=== PATIENT | male | born 1935 | race Caucasian/White ===

== ENCOUNTER 2016-12-14 09:24 | Observation (INO) | payer MEDICARE, BC ==
[~2016-12-14] VITALS: Ht 177.8 cm; Wt 61.8 kg
[~2016-12-14 09:24] MED LIST: ASPI-557 PO; ATOR40TA64 PO; CLOP75TA33 PO; METO50TA5 PO; RIVA20TA PO
--- NOTE | 2016-12-14 09:35 | NUR ---
PHYSICIAN VISIT DR. DIAZ IN TO SEE PATIENT.
--- NOTE | 2016-12-14 09:40 | NUR ---
EKG EKG TAKEN AND GIVEN TO DR DIAZ
--- NOTE | 2016-12-14 09:40 | NUR ---
CT TRANSPORTED TO CT VIA STRETCHER PER THIS NURSE.
--- NOTE | 2016-12-14 09:48 | NUR ---
RETURN RETURNED FROM CT SCAN.
--- NOTE | 2016-12-14 09:57 | DI ---
Indication: ITS.REASON: R sided tingling PROCEDURE: CT HEAD W/O CONTRAST: Encounter: Initial Comparison: November 25, 2008 Technique: Axial CT images through the head were performed without contrast. Iterative Reconstruction dose reducing technique was utilized. FINDINGS: Mild generalized atrophy. The ventricles are proportional to atrophy. Chronic infarct in the right subinsular frontal lobe. Additional old lacunar infarcts in the left thalamic region. Chronic right cerebellar infarct. There are scattered areas of low attenuation in the white matter which most likely represent changes from chronic microvascular ischemia. The brainstem, cerebellum, and cerebral hemispheres otherwise have a normal morphology and CT attenuation. There is no evidence of midline displacement. No hemorrhage, signs of acute territorial stroke, mass effect, mass lesions, or edema is evident. The visualized portions of the skull base, midface, and calvarium demonstrate no abnormality. The paranasal sinuses are well aerated and free of significant disease. The tympanic and mastoid cavities appear normal. IMPRESSION: No acute intracranial hemorrhage or extended infarct signs. .
[2016-12-14 09:59] LABS: BASOPHILS % (AUTO) 0.3 % (0-2); EOSINOPHILS % (AUTO) 0.5 % (0-4); HCT - HEMATOCRIT 47.2 % (41-53); HGB - HEMOGLOBIN 15.9 GM/DL (13.5-17.5); IMMATURE GRANULOCYTE # (AUTO) 0.01 T/MM3 (0.00-0.03); IMMATURE GRANULOCYTE % (AUTO) 0.2 % (0.0-0.5); LYMPHOCYTES # (AUTO) 0.7 T/MM3 (1-4.8); LYMPHOCYTES % (AUTO) 11.9 % (23-45); MEAN CORPUSCULAR HGB 30.1 UUG (26-34); MEAN CORPUSCULAR HGB CONC(MCHC 33.7 GM/DL (31-37); MEAN CORPUSCULAR VOLUME 89.4 UM3 (80-100); MEAN PLATELET VOLUME 10.5 UM3 (9.4-12.4); MONOCYTES # (AUTO) 0.3 T/MM3 (0-0.8); MONOCYTES % (AUTO) 4.3 % (0-9.0); NEUTROPHILS #(AUTO)-ABSOLUTE 4.8 T/MM3 (1.8-7.7); NEUTROPHILS % (AUTO) 82.8 % (33-66); RED BLOOD COUNT 5.28 M/MM3 (4.50-5.90); WBC - WHITE BLOOD COUNT 5.8 T/MM3 (4.5-11.0)
--- NOTE | 2016-12-14 10:06 | ERPDOC ---
Departure Disposition Decision Date: Dec 14, 2016 Disposition Decision Time: 11:00 Disposition: 02 TO [facility] Impression Impression Impression: Primary Impression: Tingling of right upper extremity Severity: Mild Condition: Improved Seen By: Physician only Referrals: NICOLE HARDEN MD (Family) Problems/Meds/Labs Reviewed?: Yes Medications reviewed and manag: Yes Follow up care ordered?: Yes Mental Status: Alert, Oriented HPI - General Medical General Chief Complaint: Neuro Symptoms/Deficits Stated Complaint: POSSIBLE STROKE Time Seen by Provider: 09:34 Source: patient, family, RN/MD Exam Limitations: no limitations HPI - General Medical Initial Comments 81-year-old male presents to the emergency department with a chief complaint of tingling in his right upper extremity. Patient has a history of CVA several years ago and has residual tingling and weakness on the right side. Patient states that he has noticed increased tingling. However the patient cannot state when his symptoms onset. He is unsure. Patient denies any pain or discomfort. Patient was at home when the symptoms began. Symptoms have been persistent in nature since onset. Patient does not have any other complaints or associated symptoms. He does not note any exacerbating or remitting factors. Patient is anticoagulated on Xarelto. Allergies: Coded Allergies: Iodinated Contrast Media - Oral and (Verified Allergy, Severe, RESP. DIFFICULTIES, 12/14/16) Past History Past Medical History Metabolic: cancer, hypercholesterolemia, hypertension ENMT: other Cardiac: A-fib Neurological: CVA Psychological: dementia Surgical History General: tonsils Vaccines Hx Influenza Vaccination: Yes (FALL 2014) Hx Pneumococcal Vaccination: No Social History Smoking Status: Former smoker Does patient use chewing tobac: No # of Packs/Tins per Day: 0.1 # of Years: 45 Substance Use Type: does not use Alcohol Intake: none Current Occupational Status: retired Review of Systems Constitutional Constitutional: DENIES: chills, fever Eyes General: DENIES: erythema, exudate Lids/Accessories: DENIES: erythema, swelling Vision: DENIES: acuity, blurring ENMT Ears: DENIES: drainage, pain Hearing: DENIES: hearing loss Balance: DENIES: ataxia, falling to one side Sinuses: DENIES: congestion, pain Nose: DENIES: nosebleeds, pain Mouth/Throat: DENIES: painful swallowing, sore throat Teeth: DENIES: pain Jaw: DENIES: pain Cardiovascular Cardiac: DENIES: chest pain, dyspnea on exertion Rhythm/Rate: irregular beat (hx AFIB), DENIES: palpitations Vascular: DENIES: pedal edema, unilateral swelling Pulmonary Respiratory: DENIES: cough, dyspnea, pleuritic chest pain, sputum GI Upper Abdomen: DENIES: nausea, pain, vomiting Lower Abdomen: DENIES: diarrhea, pain General: DENIES: dysuria, pain Musculoskeletal General: DENIES: joint pain, tenderness Integumentary Skin: DENIES: itching, rash Neurological General: tingling, DENIES: headache, numbness Psychiatric Psychiatric: DENIES: emotional instability, suicidal ideation/attempt Endocrine Endocrine: DENIES: polydipsia, polyphagia Hematologic/Lymphatic Hematologic/Lymphatic: DENIES: frequent nosebleeds, lymphadenopathy Allergic/Immunological Allergic/Immunoligical: DENIES: allergic reactions, hives Physical Exam General Vitals and Pain First Documented Vital Signs Date Time Temp Pulse Resp B/P Pulse Ox O2 Delivery O2 Flow Rate FiO2 12/14/16 09:25 98.1 93 16 189/101 97 Room Air Weight: Kilograms: Height (feet): 5 Height (inches): 7.00 Triage Pain Scale: Differential Diagnoses Considering: CVA, Medication Effect, Metabolic, TIA, UTI Progress Results/Orders Orders Procedure Category Date Status Time Cbc W/Auto LAB 12/14/16 Complete Diff-Reflex Manual Cmp - Comprehensive LAB 12/14/16 Complete Metabolic Troponin I W LAB 12/14/16 Complete Hemolysis Index EKG EKG 12/14/16 Taken Chest 1 View RAD 12/14/16 Resulted 09:40 INR LAB 12/14/16 Complete PTT LAB 12/14/[address] Head W/O Contrast CT 12/14/16 Resulted 09:40 Aspirin (Asa) PHA 12/15/16 In Process 09:00 UA, LAB 12/14/16 Complete Dip&Micro(Complete) & 11:10 Lab Results Laboratory Tests Test 12/14/16 09:54 12/14/16 09:55 12/14/16 09:56 Glucometer 93mg/dL White Blood Count 5.8T/MM3 Red Blood Count 5.28M/MM3 Hemoglobin 15.9GM/DL Hematocrit 47.2% Mean Corpuscular Volume 89.4UM3 Mean Corpuscular Hemoglobin 30.1UUG Mean Corpuscular Hemoglobin Concent 33.7GM/DL RDW Standard Deviation 45.4FL Platelet Count 192T/MM3 Mean Platelet Volume 10.5UM3 Immature Granulocyte % (Auto) 0.2% Neutrophils (%) (Auto) 82.8% Lymphocytes (%) (Auto) 11.9% Monocytes (%) (Auto) 4.3% Eosinophils (%) (Auto) 0.5% Basophils (%) (Auto) 0.3% Absolute Immature Granulocyte (auto 0.01T/MM3 Absolute Neutrophils (auto) 4.8T/MM3 Absolute Lymphocytes (auto) 0.7T/MM3 Absolute Monocytes (auto) 0.3T/MM3 Absolute Eosinophils (auto) 0.0T/MM3 Absolute Basophils (auto) 0.0T/MM3 Prothromb Time International Ratio 1.30 Activated Partial Thromboplast Time 37.3SEC Turbidity < 20 Sodium Level 144MEQ/L Potassium Level 4.7MEQ/L Chloride Level 108MEQ/L Carbon Dioxide Level 29MEQ/L Anion Gap 7MEQ/L Blood Urea Nitrogen 16.0MG/DL Creatinine 0.8MG/DL Glomerular Filtration Rate Calc 93 BUN/Creatinine Ratio 20RATIO Glucose Level 98MG/DL Calculated Osmolality 278MOSM/KG Calcium Level 9.2MG/DL Total Bilirubin 1.80MG/DL Icterus Index < 2 Aspartate Amino Transf (AST/SGOT) 28U/L Alanine Aminotransferase (ALT/SGPT) 26U/L Alkaline Phosphatase 78U/L Troponin I < 0.012ng/ml Total Protein 7.4G/DL Albumin 4.2G/DL Globulin 3.2G/DL Albumin/Globulin Ratio 1.3RATIO Chemistry Specimen Hemolysis < 15 Medications Progress Progress Labs/imaging were discussed in detail with the patient and questions are answered. Patient is given 81 mg of aspirin by mouth 1 as he is currently on Xarelto. Patient was given this amount of aspirin based on the recommendation of the tele-neurologist Dr. Mallory. Patient and family are in agreement with the current plan of management. Patient is admitted to the hospital in improved condition. No further orders from accepting or consulting physicians. Patient is admitted to the service of Dr. Franco in improved condition. Patient is not a TPA candidate as we do not have an exact time of onset of his symptoms. We do not know when he was last known normal. The patient has a low NIH score. Patient is admitted to the hospital in improved condition. Patient is a DO NOT RESUSCITATE. EKG EKG : Rate: 60-100 Rhythm: atrial fibrillation [place]: normal QRS: normal Intervals: normal ST/T: normal Interpreted by: signing physician Xray Xray : Xray: CXR Portable Interpretation: Normal, Interpreted by Me, Reviewed Written Report CT Date CT Interpreted for [place]: Dec 14, [address] Interpreted for Stroke: 09:54 CT : CT: Head no contrast Interpretation: Normal, Interpreted by Me, Reviewed Written Report EDWARD DIAZ DO Dec 14, 2016 10:[address] Interpreted for Stroke: 09:54 CT : CT: Head no contrast Interpretation: Normal, Interpreted by Me, Reviewed Written Report EDWARD DIAZ DO Dec 14, 2016 10:06
[2016-12-14 10:08] LABS: ALBUMIN 4.2 G/DL (3.5-5.0); ALBUMIN/GLOBULIN RATIO 1.3 RATIO (1.1-2.2); ALKALINE PHOSPHATASE 78 U/L (38-126); ALT (SGPT) 26 U/L (21-72); ANION GAP 7 MEQ/L (5-15); AST (SGOT) 28 U/L (17-59); BUN/CREATININE RATIO 20 RATIO (6-26); CALCIUM 9.2 MG/DL (8.4-10.2); CHLORIDE 108 MEQ/L (98-107); CO2 - CARBON DIOXIDE 29 MEQ/L (22-30); CREATININE 0.8 MG/DL (0.8-1.5); GLOMERULAR FILTRATION RATE 93; GLUCOSE 98 MG/DL (75-110); POTASSIUM 4.7 MEQ/L (3.6-5); SODIUM 144 MEQ/L (134-144); TOTAL PROTEIN 7.4 G/DL (6.3-8.2)
[2016-12-14 10:09] LABS: INR 1.3 (0.76-1.04); PROTHROMBIN TIME 14.2 SEC (9.31-12.49); PTT 37.3 SEC (24-36)
--- NOTE | 2016-12-14 10:10 | NUR ---
TELE-NEUROLOGIST TELE-NEUROLOGIST BEAMED IN AT BEDSIDE.
--- NOTE | 2016-12-14 10:22 | NUR ---
X-RAY X-RAY AT BEDSIDE TO PERFORM PORTABLE.
--- NOTE | 2016-12-14 10:43 | DI ---
Indication: ITS.REASON: R sided tingling PROCEDURE: CHEST 1 VIEW: Encounter: Initial Comparison: March 18, 2013 Findings: Emphysema. No focal pneumonia, pleural effusion or pneumothorax. Heart size is at the upper limits of normal. Mediastinal contours are stable. Pulmonary vascularity is normal. Impression: No acute cardiopulmonary disease. .
[2016-12-14 11:15] LABS: BLOOD, URINE 1+ (NEGATIVE); COLOR,URINE YELLOW (YELLOW); LEUKOCYTE ESTERASE ,URINE NEGATIVE (NEGATIVE); NITRITE,URINE NEGATIVE (NEGATIVE); UROBILINOGEN,URINE 0.2 EU/DL (NORMAL)
[2016-12-14] MEDS ORDERED: NORMAL SALINE 500 ML IV ONE (11:15)
[2016-12-14 11:31] LABS: BACTERIA,URINE NEGATIVE (NEGATIVE); RBC,URINE 0-1 /HPF (0-3); WBC,URINE NONE SEEN /HPF (0-5)
--- NOTE | 2016-12-14 12:16 | NUR ---
REPORT REPORT CALLED TO GHISLAINE KRUSE, MEDICAL FLOOR.
[2016-12-14 12:36] VITALS: Ht 177.8 cm; Wt 61.8 kg
[2016-12-14 12:38] VITALS: BP 177/92; PULSE 86; RESP 20; TEMP 96.6; O2SAT 96
[2016-12-14 13:01] VITALS: PULSE 86; RESP 20
--- NOTE | 2016-12-14 13:07 | NUR ---
ADMISSION NOTED 81 year old, admitted to medical unit room 151 at 12:30, patient arrived with [facility] ED staff via bed. Patient was able to transfer to the bed by him self with SBA. Family was not present during admission. Patient is AO x 3, speech is clear and appropriate. Patient is clean and dress appropriate for season, Pa states he wears upper dentures but someone probably took them home before he came to the medical unit. Pt also states he wears glasses, no glasses were present at time of admission, patient is able to verbalize needs. LS are CTA, heart rate is irregular, ED nursed reported patient having controlled A-fib. No edema noted. Patient denies pain or SOA. patient denies needs or concerns at the moment.
--- NOTE | 2016-12-14 14:13 | HPF ---
I was asked to see the patient with concern of stroke. The patient is a 81-year -old male with prior history of stroke and vascular dementia as well as hypertension, hypercholesterolemia. The patient originally had a stroke 12 years ago which left him with weakness on his right-hand side. The patient has had subsequent strokes since. The patient now arrives after noting numbness in his right arm that began yesterday. The patient is supposed to be Xarelto but patient's compliance with the medication is not good. The patient does not describe any weakness, vision changes, headache or any other focal neurologic disability. His numbness is confined to his right arm. Patient denies any recent falls. The patient lives alone, with some living assistance. PAST MEDICAL HISTORY Patient's past medical history is as described. MEDICATIONS His medication list includes beta blockers as well as Xarelto. PHYSICAL EXAMINATION On examination today, the patient is alert. He is not oriented to date. He is oriented to himself. He does not know his age. The patient is able to follow commands but the patient is [id number]. His facies are symmetric. His extraocular movements are full. His pupils constrict from 4 to 2. The patient's strength is 5/5 throughout. His fine motor movements are equivalent bilaterally. The patient reports decreased sensation in his right arm compared to the left in a nondermatomal fashion. Facial sensation and leg sensation are equivalent from side to side. Patient demonstrates no ataxia and the patient has no neglect. ASSESSMENT This is a 81-year-old male who may have had a n additional stroke or worsening of a previous stroke related to his medical condition. RECOMMENDATIONS Chemistry, CBC should be reviewed to look for any metabolic cause that would worsen his symptoms. I would not recommend an MRI for this patient. I would recommend a carotid ultrasound based upon the fact that the patient would consider endovascular revascularization if the patient did have blockage that would place him at higher risk for subsequent stroke. His hemoglobin A1c and his lipid profile should be checked. The patient's compliance with medication should be investigated. The patient has an indication with atrial fibrillation and Xarelto and should be continued on that. He is not wanting to take medication, the patient should be placed on aspirin. The patient's living situation and home safety should also be assessed. I have shared my findings with the emergency department physician. FRANDY
--- NOTE | 2016-12-14 14:31 | HPPDOC ---
ROSEMARY RESENDIZ BOILERS INSPECTOR 12/14/16 1416: HPI - Adult Date DATE: 12/14/16 TIME: 14:09 General Chief Complaint: Stroke-like symptoms History of Present Illness Brandon Walsh is a 81-year-old male who was seen in Dr. Mckeon's office this morning for routine follow-up. While he was there, he developed right hand and arm numbness. He was then sent to the emergency department for further evaluation and the teleneurologist was consulted. A CT scan of his head was negative, and labs were essentially unremarkable. Total bili was slightly elevated at 1.80. INR was 1.30. Urinalysis was negative for UTI. He received a 500 cc normal saline bolus and aspirin [address] Franco was notified, and the patient was admitted to observation status for further evaluation. Brandon has a history of a previous stroke, was reported right arm/hand weakness. He also stated that "they are watching me close for a stroke" - he stated that he gets confused sometimes. When I assessed the patient in his room on the medical unit, he denied any symptoms. I asked him specifically about numbness or tingling, and he denied having any of these problems today. I inquired about weakness or difficulty with motor control in his arms or legs, and he said he does have this sometimes, but it's because of old age, and it is made worse by the weather. He denies any visual changes, dysphagia, recent illness, fevers, shortness of breath or chest pain, palpitations, abdominal pain or GI complaints. Past Medical History Past Medical History Patient's Medical History: (1) Stroke (2) Type 2 diabetes mellitus (3) Atrial fibrillation (4) CHF (congestive heart failure) (5) Rheumatic fever Onset Date: ~ 09/1944 (6) Tubular adenoma of colon (7) Atherosclerosis of artery of both lower extremities (8) Essential (primary) hypertension (9) Mixed hyperlipidemia (10) Dementia Surgical History Patient's Surgical History: Left SFA and left popliteal recanalizations with LEAD DATABASE ADMINISTRATOR and stent 03/29/16 Attempted right popliteal and right SFA recanalization 04/28/16 Right thumb, excisional biopsy and removal of a ganglion in 2007 Colonoscopy November, Bilateral cataract repairs, 2003. Facetectomy, 1984 Tonsillectomy, 1946 Current Medications Home Meds Reported Medications Aspirin (Aspir 81) 81 Mg Tablet.dr, 1 TAB PO DAILY, TAB 04/28/16 Rivaroxaban (Xarelto) 20 Mg Tablet, 1 TAB PO DAILY 03/15/16 Metoprolol Tartrate (Metoprolol Tartrate) 50 Mg Tablet, 50 MG PO BIDWM, TAB Take 1 tablet, by mouth, 2 times a day with meals. 03/15/16 Atorvastatin Calcium (Atorvastatin Calcium) 40 Mg Tablet, 1 TAB PO DAILY 03/15/16 Allergies: Coded Allergies: Iodinated Contrast Media - Oral and (Verified Allergy, Severe, RESP. DIFFICULTIES, 12/14/16) Family History Family History: Per previous records - Father - DM and HTN Unable to add any further fam hx Social History Smoking Status: Former smoker (he's not sure when he quit smoking - possibly 20 years ago) Does patient use chewing tobac: No # of Packs/Tins per Day: 0.1 # of Years: 45 Substance Use Type: does not use Alcohol Intake: none Current Occupational Status: retired Prior Occupation: [employer] Advance Directives: Yes DNR, No DPOA for Healthcare Only Review of Systems Unable to Obtain ROS Due to: dementia (pt is a poor historian) Constitutional: DENIES: appetite decrease, chills, dizziness, fatigue, fever, weakness Eyes Vision: DENIES: vision changes ENMT Sinuses: NOT FOUND: congestion, rhinorrhea Mouth/Throat: DENIES: change in swallowing, sore throat Cardiovascular DENIES: chest pain, dyspnea on exertion Vascular: DENIES: pedal edema Pulmonary Respiratory: DENIES: cough, dyspnea GI Upper Abdomen: DENIES: nausea, pain, vomiting Lower Abdomen: DENIES: constipation, diarrhea General: DENIES: dysuria, frequency Musculoskeletal General: DENIES: pain, weakness Integumentary Skin: DENIES: rash Neurological General: memory disturbances, DENIES: ataxia, headache, numbness, syncope, tremor, weakness Psychiatric Psychiatric: DENIES: anxiety, depression Hematologic/Lymphatic DENIES: anemia Allergic/Immunological DENIES: frequent infections All Other Systems All Other Systems: Reviewed (remainder of 10-point ROS Neg.) Physical Exam General General Nourishment: well nourished, well developed, thin General Body Habitus: well groomed Vital Signs Vital Signs Date Time Temp Pulse Resp B/P Pulse Ox O2 Delivery O2 Flow Rate FiO2 12/14/16 13:01 86 20 12/14/16 12:38 96.6 177/92 96 Room Air Height (Feet): 5 Height (Inches): 10.00 Eyes Brief: FOUND: EOMI, PERRL, NOT FOUND: scleral icterus ENMT Brief: FOUND: mucosa moist, NOT FOUND: pharnyx erythema Neck Brief: NOT FOUND: adenopathy, nuchal rigidity Respiratory Auscultation: FOUND: normal, NOT FOUND: rales, rhonchi, wheezes Cardiovascular Auscultation: FOUND: S1, S2, regular Peripheral Pulses: 2+: Dorasalis Pedis (L), Dorsalis Pedis (R), Posterior Tibial (L), Posterior Tibial (R), Radial (L), Radial (R) Edema: 0: Anasarca, Arm (L), Arm (R), Face, Leg (L), Leg (R) Abdomen Inspection: NOT FOUND: distention Palpation: FOUND: soft, NOT FOUND: McBurney's point tender, Warner's sign, involuntary guarding, rebound, tender, voluntary guarding Auscultation: FOUND: normo active Lymphatic (brief) Lymphatic Brief: NOT FOUND: adenopathy Musculoskeletal (brief) Musculoskeletal Brief: NOT FOUND: deformity, loss of motion Integumentary (brief) Integumentary Brief: FOUND: dry, pink, warm Integumentary General: FOUND: dry, warm Color: FOUND: pink Neurologic (brief) Neurological Brief: FOUND: cranial 2-12 intact, motor (equal b/l) Neurologic GCS Eye Opening: (4)Spontaneous GCS Verbal: (5)Oriented GCS Motor: (6)Obeys Commands RN Documented GCS Eye Opening: (4)Spontaneous Verbal: (5)Oriented Motor: (6)Obeys Commands Total: Psychiatric (brief) FOUND: alert, attentive, normal affect, oriented Laboratory Laboratory Tests Test 12/14/16 09:54 12/14/16 09:55 12/14/16 09:56 12/14/16 11:10 Glucometer 93mg/dL White Blood Count 5.8T/MM3 Red Blood Count 5.28M/MM3 Hemoglobin 15.9GM/DL Hematocrit 47.2% Mean Corpuscular Volume 89.4UM3 Mean Corpuscular Hemoglobin 30.1UUG Mean Corpuscular Hemoglobin Concent 33.7GM/DL RDW Standard Deviation 45.4FL Platelet Count 192T/MM3 Mean Platelet Volume 10.5UM3 Immature Granulocyte % (Auto) 0.2% Neutrophils (%) (Auto) 82.8% Lymphocytes (%) (Auto) 11.9% Monocytes (%) (Auto) 4.3% Eosinophils (%) (Auto) 0.5% Basophils (%) (Auto) 0.3% Absolute Immature Granulocyte (auto 0.01T/MM3 Absolute Neutrophils (auto) 4.8T/MM3 Absolute Lymphocytes (auto) 0.7T/MM3 Absolute Monocytes (auto) 0.3T/MM3 Absolute Eosinophils (auto) 0.0T/MM3 Absolute Basophils (auto) 0.0T/MM3 Prothromb Time International Ratio 1.30 Activated Partial Thromboplast Time 37.3SEC Turbidity < 20 Sodium Level 144MEQ/L Potassium Level 4.7MEQ/L Chloride Level 108MEQ/L Carbon Dioxide Level 29MEQ/L Anion Gap 7MEQ/L Blood Urea Nitrogen 16.0MG/DL Creatinine 0.8MG/DL Glomerular Filtration Rate Calc 93 BUN/Creatinine Ratio 20RATIO Glucose Level 98MG/DL Calculated Osmolality 278MOSM/KG Calcium Level 9.2MG/DL Total Bilirubin 1.80MG/DL Icterus Index < 2 Aspartate Amino Transf (AST/SGOT) 28U/L Alanine Aminotransferase (ALT/SGPT) 26U/L Alkaline Phosphatase 78U/L Troponin I < 0.012ng/ml Total Protein 7.4G/DL Albumin 4.2G/DL Globulin 3.2G/DL Albumin/Globulin Ratio 1.3RATIO Chemistry Specimen Hemolysis < 15 Urine Collection Type Cleancatch-midstream Urine Color Yellow Urine Turbidity Clear Urine pH 5.5 Urine Specific Slaughter 1.020 Urine Protein Negative Urine Glucose (UA) Negative Urine Ketones Negative Urine Blood 1+ Urine Nitrite Negative Urine Bilirubin Negative Urine Urobilinogen 0.2EU/DL Urine Leukocyte Esterase Negative Urine RBC 0-1/HPF Urine WBC None seen/HPF Urine Bacteria Negative Urine Culture Indicated Cult not indicated Assessment & Plan Problems: (1) Tingling of right upper extremity Status: Acute Assessment & Plan: R/O stroke (2) Mixed hyperlipidemia Status: Chronic (3) Essential (primary) hypertension Status: Chronic (4) Atherosclerosis of artery of both lower extremities Status: Chronic (5) Atrial fibrillation Status: Chronic (6) CHF (congestive heart failure) Status: Chronic (7) Rheumatic fever Onset Date: ~ 09/1944 Status: Chronic (8) Type 2 diabetes mellitus Status: Chronic (9) Tubular adenoma of colon Status: Chronic (10) Stroke (11) Dementia Plan/Intensity of Service Admit to observation status under Dr. Franco.. Dx: Right-sided paresthesias, concerning for stroke versus TIA Initial CT head showed mild atrophy without any acute findings. Will obtain carotid Dopplers, echocardiogram, lipid panel. Continue aspirin, Lipitor. Neuro exams every 4 hours while awake Consult PT, OT and speech therapy History of A. fib: Continue beta harvinder and Xarelto. Will discuss further orders with Dr. Franco. DVT Prophylaxis: Xarelto Code Status Do Not Resuscitate Hospital Course Summary Disclaimer The hospital course summary below is not to be considered part of the above Progress Note. Hospital Course Summary 12/14/16 - Admit to observation status under Dr. Franco. Dx: Right-sided paresthesias, concerning for stroke versus TIA Initial CT head showed mild atrophy without any acute findings. Will obtain carotid Dopplers, echocardiogram, lipid panel. Continue aspirin, Lipitor. Neuro exams every 4 hours while awake Consult PT, OT and speech therapy History of A. fib: Continue beta harvinder and Xarelto. MICHEAL FRANCO MD 12/14/162118: Past Medical History Current Medications Home Meds Reported Medications Aspirin (Aspir 81) 81 Mg Tablet.dr, 1 TAB PO DAILY, TAB 04/28/16 Rivaroxaban (Xarelto) 20 Mg Tablet, 1 TAB PO DAILY 03/15/16 Metoprolol Tartrate (Metoprolol Tartrate) 50 Mg Tablet, 50 MG PO BIDWM, TAB Take 1 tablet, by mouth, 2 times a day with meals. 03/15/16 Atorvastatin Calcium (Atorvastatin Calcium) 40 Mg Tablet, 1 TAB PO DAILY 03/15/16 Allergies: Coded Allergies: Iodinated Contrast Media - Oral and (Verified Allergy, Severe, RESP. DIFFICULTIES, 12/14/16) Assessment & Plan Assessment 12/14/2016-I reviewed this chart, the patient history, and the BOILERS INSPECTOR's/PA's documented findings as above. We discussed and formulated the assessment and plan as above with the additions below.-Dr. Franco Currently the patient states he's feeling fine. He denies any numbness or tingling anywhere. He denies any weakness. He denies any pain anywhere. He is breathing well. He does have significant dementia. He is currently pleasant. He was moved to a room close to the nurses station because he was frequently trying to get out of bed. On exam he is alert and in no acute distress. He is pleasantly demented. HEENT reveals no facial asymmetry. Sclera are anicteric. Pupils are equal. Oropharynx is moist. Neck is supple. Carotids are silent. Chest is clear to auscultation. Cardiovascular reveals a regular rate and rhythm. Abdomen is soft and nontender. Extremity is reveal no edema. Neurologic exam reveals confusion. Cranial nerves II through XII are grossly intact. Motor strength is equal in upper and lower extremities. Finger to nose testing is normal. PT and OT both evaluated the patient and recommend 24-hour supervision and I would concur based on his gait instability and confusion. He would likely benefit from making sure his medications are taken appropriately. 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 No intracardiac thrombus or mass. Neuro checks have been normal. Continue on aspirin and Xarelto. Lipid panel is pending. Monitor Accu-Cheks. Consult case management for help with discharge planning. Patient will need 24- hour care. Consider further workup regarding vertebral artery occlusion. ROSEMARY RESENDIZ APRN Dec 14, 2016 14:16 MICHEAL FRANCO MD Dec 14, 2016 21:19
--- NOTE | 2016-12-14 15:47 | DI ---
Indication: ITS.REASON: poss stroke, hx CAD and PVD PROCEDURE: US CAROTID DOPP COMPLETE: TECHNIQUE: Grayscale, color and duplex Doppler imaging was performed of the carotid systems bilaterally. Velocities in cm/sec - validated velocity measurements with angiographic measurements, velocity criteria are extrapolated from diameter data as defined by the Society of Radiologists in Ultrasound Consensus Conference Radiology 2003; 229;340-346. RIGHT: PSV ICA 56 EDV ICA 18 PSV CCA 66 EDV CCA 14 SVR 0.8 PSV ECA 61 ICA Diameter reduction 10%-30% (1.0-1.2 PSV<110)% LEFT: PSV ICA 46 EDV ICA 19 PSV CCA 61 EDV CCA 14 SVR 0.8 PSV ECA 62 ICA Diameter reduction 10%-30% (1.0-1.2 PSV<110)% The right vertebral artery is occluded with retrograde flow. There is bidirectional flow in the right subclavian artery. The left vertebral artery is patent with cephalic flow. Scattered atherosclerotic plaque in the carotid bulbs and proximal ICAs. No velocity elevation. IMPRESSION: 1. No hemodynamically significant carotid stenosis. 2. 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 .
--- NOTE | 2016-12-14 16:54 | STEVAL ---
Eval Subjective and History Date/Time of Eval DATE: 12/14/16 TIME: 16:33 Medical Diagnosis R.O CVA, R/O DYSPHAGIA Treatment Order: Assessment, Dev./Imp. tx plan Orientations: Alert (CONFUSED), Cooperative Primary Complaint: POSSIBLE STROKE Pain: Yes (ACHES FROM ARTHRITIS) Date of Onset of Primary Com: 12/14/16 Prior History of This Problem: Yes (PREVIOUS CVA'S) Patient's Goals: PT WAS CONFUSED TO TIME AND PLACE. HE WANTED SOMEONE TO BRING HIS UPPER DENTURES AND PAJAMAS TO HIM. Significant Past Medical Hx: PT WAS ADMITTED TO [facility] TO RULE OUT STROKE. PMH: MULTIPLE STROKES, RESIDUAL RIGHT WEAKNESS, VASCULAR DEMENTIA, HTN, HYPERCHOLESTEROLEMIA, IONE, TYPE 2 DM, A-FIB, CHF, RHEMUMATIC FEVER 1944, DNR STATUS. Medical History Form Reviewed: Yes Residence Type: Private home/apartment Lives With: Alone Prior Functional Status: PT REPORTED THAT HE WAS ON REGULAR DIET. Current Functional Status: INCREASED RISK OF ASPIRATION Education Subject: Swallowing Strategies Person(s) Educated: Patient Instruction Understanding Demo: Education unsuccessful Education Comment ENDOSCOPY REGISTERED NURSE educated patient on reasoning for evaluation. Pt was suspicious on evaluation but cooperated. Subjective and History Comment: PT WAS ALERT BUT NOT ORIENTED. HE REPORTED THAT HE DID NOT HAVE HIS UPPER DENTURES. PT NEEDED LOUD CONVERSATIONAL VOICE AND FACE TO FACE CONTACT TO UNDERSTAND DIRECTIONS. Dysphagia Evaluation Evaluation Location: Bed (SITTING ON SIDE OF BED) Evaluation Angle: 90 Tongue Protrusion: No Impairment (WFL) Tongue Retraction: No Impairment (WFL) Tongue Extension Midline: No Impairment (WFL) Labial Approximation: No Impairment (WFL) Larynx Elevation During Swallo: No Impairment (WFL) Saliva Control: No Impairment (WFL) Oral Peripheral Exam Comment: PT WAS UNWILLING TO IMITATE ORAL MOTOR MOVEMENTS. SPONTANEOUS MOVEMENTS WERE WITHIN FUNCTIONAL LIMITS. UPPER DENTURE WAS AT HOME. Lip Seal: Adequate-liquid, Adequate-pudding, Adequate-solid Lingual Manipulation: Adequate-liquid, Adequate-pudding, Adequate-solid Chewing: Inadequate-solid (MODERATELY REDUCED, NO UPPER DENTURE) Oral cavity clear post swallow: Adequate-pudding, Adequate-solid Swallow initiated w/o delay: Adequate-liquid, Adequate-pudding, Adequate-solid Multiple swallows not needed: Adequate-liquid, Adequate-pudding, Adequate-solid Voice clear&dry post swallow: Adequate-liquid, Adequate-pudding, Adequate-solid No cough/throat clear: Adequate-liquid, Adequate-pudding, Adequate-solid Assessment/Plan of Care Speech Therapy Impressions: PT DEMONSTRATED FUNCTIONAL ORAL RANGE OF MOTION. HE DEMONSTRATED IMPULSIVE PATTERN FOR EATING AND DRINKING BUT NO S/S OF ASPIRATION. UPPER DENTURE LEFT AT HOME. PT ATE SUGAR FREE PUDDING AND HARITHA CRACKER WITH NO DIFFICULT. THIN LIQUIDS TOLERATED WELL WITH CUE TO SLOW RATE. Nursing Home Goal: Pt will maintain nutrition and hydration of the least restrictive diet while demonstrating no s/s of aspiration on a meal. Short Term Goal: Pt will consume a soft diet with chopped meat and thin liquids without outward signs of aspiration at bedside in 2/2trials. Pt will demonstrate 3/3 components necessary for a safe swallow as listed from the following small bites, slow rate, alternating solids/liquids. Pt will implement compensatory feeding strategies in 2/2 feeding trials / meals with mild cues to aid recall. ST Treatment Plan: Swallow Retraining, Swallow Precautions, Modified Diet ST Treatment Plan Frequency: two times per week Treatment Plan Duration: one week Plan of Care Comment soft diet/chopped meat and regular liquids small bites/sips, alternate solids and liquids swallow precautions Date of Visit 12/14/16 Time Visit Began: 16:15 Time Visit Ended: 16:35 ST Assess/Plan of Care: ST Treatment Charge: Swallow Eval Minutes of Individual Therapy: 20 INDIO GRUBER MS CCC-ENDOSCOPY REGISTERED NURSE Dec 14, 2016 16:36
--- NOTE | 2016-12-14 19:47 | NUR ---
SHIFT SUMMARY Patient has been pleasant, he is cooperative compliant with medications. Patient is NIKOLSKI, he continues to ask often for his glasses, patient will get up to the bathroom with out calling for help, Pt is a little unsteady, he ambulates with FWW Pt needs help with reading the menu since he doesn't have his glasses with him. Neuro vascular checks are suppose to be done Q 4 hr Last neuro vascular checks patient denies numbness or tingling on any extremities. Extremities strength were WNL. Able to smile and move facial features. speech is clear and appropriate. while awake. Patient denied any pain this shift. patient denies needs or concerns at the moment.
[2016-12-14 20:25] VITALS: PULSE 90; RESP 20
[2016-12-14 23:41] VITALS: PULSE 98; RESP 20
--- NOTE | 2016-12-14 23:55 | NUR ---
Status arrived on shift. Patient is alert and oriented to person/place/month. patient was close on date. patient was cooperative with assessment. Anxious and hollering out. Patient appears anxious as observed by impulsiveness, restless, poor safety awareness, elevated HR. And repeating same questions 10-15x in a 5min period. Patient is able to follow command, Neuro check unremarkable.
[2016-12-15] MEDS: LORAZEPAM 0.5 MG TABLET PO PRN ×2 (00:15→11:35)
[2016-12-15 00:35] VITALS: BP 165/99; PULSE 80; RESP 18; TEMP 97.3; O2SAT 95
[2016-12-15 00:38] LABS: LDL CHOLESTEROL,CALCULATED 152.2 (66-159); RISK FACTOR 4.1 RATIO (0-5.0); VLDL CHOLESTEROL 15.8 MG/DL (0-28)
--- NOTE | 2016-12-15 03:06 | NUR ---
status patient was cooperative with neuro check. Patient orientation decreased to person only. Patient has hx of dementia. patient is alert, and up standby assist. patient is focusing [place] and what time the train is leaving. 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 Patient is up in room with staff at side, patient is looking for his clothes to leave. Patient is able to follow commands, unable to be reoriented to hospital at this time. patient is pleasant with staff at this time. no aggression noted Addendum: 12/15/16 at 0315 by JORGE FORDE RN per bedside report from previous nurse, patient had been hitting, kicking, uncooperative with cares, and aggressive with staff. Previous RN was unable to get pt to be cooperative with Tele. Tele was placed on patient after assuming care at 2300.
--- NOTE | 2016-12-15 06:09 | NUR ---
status patient hasn't slept through the night. patient has been impulsive trying to climb out of bed frequently. slightly unsteady gait, with poor safety awareness. patient denies pain or discomfort. On RA, VSS. A/O to person only, with hx of dementia. Patient is Pleasantly confused at this time. equal strength in limbs, responds to cuing. Staff is at bedside for patient safety.
[2016-12-15 07:46] VITALS: BP 131/92; PULSE 73; RESP 16; TEMP 98.3; O2SAT 96
--- NOTE | 2016-12-15 07:57 | ECHOF ---
ECHOCARDIOGRAM REPORT DATE OF PROCEDURE December 14, [address] Johanny Franco This is a two-dimensional echo with spectral Doppler, color-flow and M-mode. It was obtained in a patient with possible CVA, CHF and A-Fib. Left atrium is dilated. Left ventricle end-diastolic dimension is normal. Left ventricle wall thickness is normal. LV systolic function is normal with ejection fraction of 60%. Right atrium is dilated. Right ventricle is normal. Aortic root dimension is normal. Mitral annulus is calcified. Mitral valve leaflets are normal with moderate mitral regurgitation. Aortic valve shows fibrocalcific changes with no stenosis or insufficiency. Tricuspid valve shows mild tricuspid regurgitation with normal estimated pulmonary artery systolic pressure of 30. Pulmonary valve shows no pulmonary insufficiency. There is no pericardial effusion. Grossly there is no intracardiac thrombus or mass. IMPRESSION 1. Normal LV systolic function with ejection fraction of 60%. 2. Technically difficult study. 3. Grossly no intracardiac thrombus or mass. 4. Mitral annulus calcification with moderate mitral regurgitation. 5. Biatrial dilation. 6. Aortic sclerosis. 7. Mild tricuspid regurgitation with normal estimated pulmonary artery systolic pressure of 30. MTDD
[2016-12-15 08:00] VITALS: PULSE 73; RESP 18
--- NOTE | 2016-12-15 08:30 | NUR ---
Pt Assessment Pt oriented to person only, thinks is in school. Does not know he is in the hospital, does not reorient, and questions why other students are "old people"? Is impulsive and requires 1:1 observation and chair alarm. Pt is pleasant when redirected and will follow requests, but briefly.
[2016-12-15] MEDS ORDERED: ASPIRIN *EC* 81mg TABLET PO SCH (09:00)
[2016-12-15] MEDS ORDERED: ASPIRIN 81 MG CHEWABLE TABLET PO SCH (09:00)
--- NOTE | 2016-12-15 09:09 | STDAILYN ---
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 No complaint of pain or fatigue. Orientations: Alert (confused), Cooperative Chief Complaint: right pneumonia, sepsis, dysphagia R13.11 Was Patient Education Provided: Yes Education Subject: Swallowing Strategies Instruction Understanding Demo: Pt. demos understanding Education Comment Pt followed cueing for feeding strategies. Unlikely that he will retain information. *Speech Therapy Impressions Pt fed himself a soft diet/chopped meat and regular liquids with minimal throat clearing after swallow. Pt used small bites/slow rate with moderate cue needed to alternate solids and liquids. Pt needed mild cueing to use compensatory feeding strategies consistently. ST Treatment Plan: Swallow Retraining, Swallow Precautions, Modified Diet ST Treatment Plan Frequency: three times per week Treatment Plan Duration: one week Plan of Care Comment: Continue POC Start Treatment 1: 08:25 Stop Treatment 1: 08:50 Treatment Duration : ST Treatment Charge: Swallow Treatment Minutes of Individual Therapy: 25 INDIO GRUBER MS CCC-MEDICAL SUPERVISOR Dec 15, 2016 09:08
--- NOTE | 2016-12-15 09:53 | NUR ---
HERI LIRIANO VISITED WITH PT AND FRIEND WHO IS AT BEDSIDE. CM EXPLAINED ROLE AND PROVIDED CONTACT INFORMATION. PT/FRIEND WOULD LIKE PT TO GO TO [facility] POST STAY AT [facility] [place]. CM REACHED OUT TO RAVEN AT [facility]. CM WILL FAX INFORMATION TO FACILITY AND THEY WILL CONTACT CM IF NEEDS ARISE. THEY ARE AWARE THAT PT COULD D/C TODAY.
--- NOTE | 2016-12-15 11:15 | NUR ---
PRN Med Pt given Ativan 0.5 mg po for restlessness, impulsive and difficult to redirect and wanting to get dressed and get keys to car and ready to leave.
--- NOTE | 2016-12-15 12:15 | NUR ---
Post PRN med Pt. sleeping and bed alarm on. No respiratory difficulty noted.
--- NOTE | 2016-12-15 14:22 | NUR ---
HERI LIRIANO SPOKE WITH HAY FROM [facility] AND THEY HAVE ACCEPTED PT. DR CHANDLER IS AWARE AND WILL D/C PT TO FACILITY TODAY. [facility] WILL DERMATOLOGY SPECIALIST PT AT 3:00PM TODAY. PT FRANCO PHELPS IS AWARE OF D/C TIME. MATTIE IS AWARE TO CONTACT HERI IF NEEDS ARISE.
[2016-12-15] MEDS ORDERED: ASPI-557 PO (14:24)
[2016-12-15] MEDS ORDERED: UBID200C32 PO (14:24)
[2016-12-15] MEDS ORDERED: ATOR80TA76 PO (14:24)
[2016-12-15] MEDS ORDERED: METO50TA5 PO (14:24)
[2016-12-15] MEDS ORDERED: RIVA20TA PO (14:24)
--- NOTE | 2016-12-15 14:27 | PDOCECFAO ---
ROSEMARY RESENDIZ TELEVISION REPAIR TEACHER 12/15/16 1426: Admission Orders Admission Orders Admit to: ICF Allergies: Coded Allergies: Iodinated Contrast Media - Oral and (Verified Allergy, Severe, RESP. DIFFICULTIES, 12/14/16) Admitting Diagnosis R/O Cva Admitting Physician Johanny Franco MD Code Status Do Not Resuscitate Anticipated LOS: 30 days or less Rehab Potential: Good Rehab Prognosis: Good Diet: No Salt Added Wound/Incision Care: N/A May use Facility Protocol /SO: Yes May Have Flu Vaccine: Yes Intermediate Certification I certify that SNF services are required to be given on an Inpatient basis because of the patient's need for custodial care on a continuing basis for the condition(s) for which he received inpatient hospital services prior to his transfer to the SNF. SNF inpatient care is necessary for the following reasons Not Applicable Cardiac or Respiratory Arrest In Event of Arrest: Do Not Start CPR Resident is Aware of Diagnosis: No (Dementia) Additional Orders: F/U with Dr. Montaño in [address] Mckeon's office to arrange F/U in 2-4 weeks Monitor for stroke symptoms and for muscle pain/weakness since he is on a higher dose of Simvastatin. JOHANNY FRANCO MD 12/15/16 1616: Admission Orders Admission Orders Allergies: Coded Allergies: Iodinated Contrast Media - Oral and (Verified Allergy, Severe, RESP. DIFFICULTIES, 12/14/16) ROSEMARY RESENDIZ APRN Dec 15, 2016 14:26 JOHANNY FRANCO MD Dec 15, 2016 16:16
--- NOTE | 2016-12-15 14:31 | STDAILYN ---
Discharge Note Date/Time DATE: 12/15/16 TIME: 14:29 Discharge From: Inpatient ST Discharge Destination: [facility] ([facility]) Other Reasons for Discharge: swallow plan in place Barriers to Achieving Outcomes: Patient's Cognitive Level Discharge Summary: Pt tolerated a soft diet wtih chopped meat and regular liquids. He may upgrade to regular diet when he has his upper plate in. Discharge Followup Comments: Upgrade diet to regular when pt has his upper denture in. INDIO GRUBER MS CCC-[facility] Dec 15, 2016 14:31
--- NOTE | 2016-12-15 14:39 | DSPDOC ---
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 Normal LV systolic function with ejection fraction of 60%. 2. Technically difficult study. 3. Grossly no intracardiac thrombus or mass. 4. Mitral annulus calcification with moderate mitral regurgitation. 5. Biatrial dilation. 6. Aortic sclerosis. 7. Mild tricuspid regurgitation with normal estimated pulmonary artery systolic pressure of 30. US CAROTID DOPP COMPLETE The right vertebral artery is occluded with retrograde flow. There is bidirectional flow in the right subclavian artery. The left vertebral artery is patent with cephalic flow. Scattered atherosclerotic plaque in the carotid bulbs and proximal ICAs. No velocity elevation. IMPRESSION: 1. No hemodynamically significant carotid stenosis. 2. 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 Laboratory Laboratory Tests Test 12/14/16 09:54 12/14/16 09:55 12/14/16 09:56 12/14/16 11:10 Glucometer 93mg/dL (75-110) White Blood Count 5.8T/MM3 (4.5-11.0) Red Blood Count 5.28M/MM3 (4.50-5.90) Hemoglobin 15.9GM/DL (13.5-17.5) Hematocrit 47.2% (41-53) Mean Corpuscular Volume 89.4UM3 (80-100) Mean Corpuscular Hemoglobin 30.1UUG (26-34) Mean Corpuscular Hemoglobin Concent 33.7GM/DL (31-37) RDW Standard Deviation 45.4FL (36.9-50.2) Platelet Count 192T/MM3 (130-400) Mean Platelet Volume 10.5UM3 (9.4-12.4) Immature Granulocyte % (Auto) 0.2% (0.0-0.5) Neutrophils (%) (Auto) 82.8% (33-66) Lymphocytes (%) (Auto) 11.9% (23-45) Monocytes (%) (Auto) 4.3% (0-9.0) Eosinophils (%) (Auto) 0.5% (0-4) Basophils (%) (Auto) 0.3% (0-2) Absolute Immature Granulocyte (auto 0.01T/MM3 (0.00-0.03) Absolute Neutrophils (auto) 4.8T/MM3 (1.8-7.7) Absolute Lymphocytes (auto) 0.7T/MM3 (1-4.8) Absolute Monocytes (auto) 0.3T/MM3 (0-0.8) Absolute Eosinophils (auto) 0.0T/MM3 (0-0.5) Absolute Basophils (auto) 0.0T/MM3 (0-0.2) Prothromb Time International Ratio 1.30 (0.76-1.04) Activated Partial Thromboplast Time 37.3SEC (24-36) Turbidity < 20 (0-20) Sodium Level 144MEQ/L (134-144) Potassium Level 4.7MEQ/L (3.6-5) Chloride Level 108MEQ/L (98-107) Carbon Dioxide Level 29MEQ/L (22-30) Anion Gap 7MEQ/L (5-15) Blood Urea Nitrogen 16.0MG/DL (9-20) Creatinine 0.8MG/DL (0.8-1.5) Glomerular Filtration Rate Calc 93 BUN/Creatinine Ratio 20RATIO (6-26) Glucose Level 98MG/DL (75-110) Calculated Osmolality 278MOSM/KG (261-280) Calcium Level 9.2MG/DL (8.4-10.2) Total Bilirubin 1.80MG/DL (0.20-1.30) Icterus Index < 2 (0-7) Aspartate Amino Transf (AST/SGOT) 28U/L (17-59) Alanine Aminotransferase (ALT/SGPT) 26U/L (21-72) Alkaline Phosphatase 78U/L (38-126) Troponin I < 0.012ng/ml (0-0.12) Total Protein 7.4G/DL (6.3-8.2) Albumin 4.2G/DL (3.5-5.0) Globulin 3.2G/DL (2.4-3.6) Albumin/Globulin Ratio 1.3RATIO (1.1-2.2) Triglycerides Level 79MG/DL (40-160) Cholesterol Level 222MG/DL (132-199) LDL Cholesterol, Calculated 152.2 (66-159) VLDL Cholesterol 15.8MG/DL (0-28) HDL Cholesterol Direct 54MG/DL (40-60) Cholesterol/HDL Ratio 4.1RATIO (0-5.0) Chemistry Specimen Hemolysis < 15 (0-25) Urine Collection Type Cleancatch-midstream Urine Color Yellow (YELLOW) Urine Turbidity Clear (CLEAR) Urine pH 5.5 (5.0-8.0) Urine Specific [place] 1.020 (1.015-1.025) Urine Protein Negative (NEGATIVE) Urine Glucose (UA) Negative (NEGATIVE) Urine Ketones Negative (NEGATIVE) Urine Blood 1+ (NEGATIVE) Urine Nitrite Negative (NEGATIVE) Urine Bilirubin Negative (NEGATIVE) Urine Urobilinogen 0.2EU/DL (NORMAL) Urine Leukocyte Esterase Negative (NEGATIVE) Urine RBC 0-1/HPF (0-3) Urine WBC None seen/HPF (0-5) Urine Bacteria Negative (NEGATIVE) Urine Culture Indicated Cult not indicated Radiology CHEST 1 VIEW Impression: No acute cardiopulmonary disease. CT HEAD W/O CONTRAST FINDINGS: Mild generalized atrophy. The ventricles are proportional to atrophy. Chronic infarct in the right subinsular frontal lobe. Additional old lacunar infarcts in the left thalamic region. Chronic right cerebellar infarct. There are scattered areas of low attenuation in the white matter which most likely represent changes from chronic microvascular ischemia. The brainstem, cerebellum , and cerebral hemispheres otherwise have a normal morphology and CT attenuation. There is no evidence of midline displacement. No hemorrhage, signs of acute territorial stroke, mass effect, mass lesions, or edema is evident. The visualized portions of the skull base, midface, and calvarium demonstrate no abnormality. The paranasal sinuses are well aerated and free of significant disease. The tympanic and mastoid cavities appear normal. IMPRESSION: No acute intracranial hemorrhage or extended infarct signs. History of Present Illness Brandon Walsh is a 81-year-old male who was seen in Dr. Mckeon's office this morning for routine follow-up. While he was there, he developed right hand and arm numbness. He was then sent to the emergency department for further evaluation and the teleneurologist was consulted. A CT scan of his head was negative, and labs were essentially unremarkable. Total bili was slightly elevated at 1.80. INR was 1.30. Urinalysis was negative for UTI. He received a 500 cc normal saline bolus and aspirin [address] Franco was notified, and the patient was admitted to observation status for further evaluation. Brandon has a history of a previous stroke, was reported right arm/hand weakness. He also stated that "they are watching me close for a stroke" - he stated that he gets confused sometimes. When I assessed the patient in his room on the medical unit, he denied any symptoms. I asked him specifically about numbness or tingling, and he denied having any of these problems today. I inquired about weakness or difficulty with motor control in his arms or legs, and he said he does have this sometimes, but it's because of old age, and it is made worse by the weather. He denies any visual changes, dysphagia, recent illness, fevers, shortness of breath or chest pain, palpitations, abdominal pain or GI complaints. Hospital Course Admitted to observation status under Dr. Franco on 12/13/16 for right-sided paresthesias, concerning for stroke versus TIA. Stroke w/u was ordered - he had rt vertebral artery occlusion, poss subclavian steal syndrome. PT/OT evaluated him - he was impulsive and PT recommended IP PT, but he didn't qualify for IP OT. Lipid panel revealed elevated cholesterol level (222). Serial neuro exams remained negative. Pt required 1:1 care d/t confusion and difficulty following commands, required frequent redirection for safety. For this reason, he was discharged to [facility] rather than back to [place]. Discussed imaging findings with Scarlett Zavala APRN & Dr. Mckeon prior to discharge - increase atorvastatin to 80 mg and start coenzyme q10 (may prevent some muscular discomfort). They would like to f/u in outpatient setting but do not have any immediate recommendations. Continue ASA and Xarelto and BB on discharge. Pt was discharged in stable condition. Pt understanding was limited d/t dementia. F/U with Dr. Harden in 1 week. (This is a brief summary of Mr. Walsh's hospital stay. For more details, please refer to original documents.) Problems: (1) Vertebral artery occlusion (2) TIA (transient ischemic attack) (3) Tingling of right upper extremity Status: Resolved Assessment & Plan: R/O stroke (4) Mixed hyperlipidemia Status: Chronic (5) Essential (primary) hypertension Status: Chronic (6) Atherosclerosis of artery of both lower extremities Status: Chronic (7) Atrial fibrillation Status: Chronic (8) CHF (congestive heart failure) Status: Chronic (9) Type 2 diabetes mellitus Status: Chronic (10) Stroke (11) Dementia Code Status Do Not Resuscitate Home Meds Active Scripts Ubidecarenone (Coenzyme Q-10) 200 Mg Capsule, 200 MG PO DAILY, #3 CAP 0 Refills Prov:ROSEMARY RESENDIZ ENVIRONMENTAL SERVICES TECH 12/15/16 Atorvastatin Calcium (Atorvastatin Calcium) 80 Mg Tablet, 1 TAB PO HS, #30 TAB Prov:ROSEMARY RESENDIZ ENVIRONMENTAL SERVICES TECH 12/15/16 Aspirin (Aspir 81) 81 Mg Tablet.dr, 1 TAB PO DAILY, #30 TAB Prov:ROSEMARY RESENDIZ ENVIRONMENTAL SERVICES TECH 12/15/16 Rivaroxaban (Xarelto) 20 Mg Tablet, 1 TAB PO DAILY, #30 Prov:ORSEMARY RESENDIZ ENVIRONMENTAL SERVICES TECH 12/15/16 Metoprolol Tartrate (Metoprolol Tartrate) 50 Mg Tablet, 50 MG PO BIDWM, #60 TAB Take 1 tablet, by mouth, 2 times a day with meals. Prov:RSOEMARY RESENDIZ ENVIRONMENTAL SERVICES TECH 12/15/16 Discontinued Reported Medications Atorvastatin Calcium (Atorvastatin Calcium) 40 Mg Tablet, 1 TAB PO DAILY 03/15/16 Face to Face Encounter Pt's comprehension of DC instructions is limited. Discharge Disposition ICF Copies To 1: NICOLE HARDEN MD Copies To 2: ALEXANDER MCKEON MD Documentation Requirements Documenting Diagnosis Confusion Alt. Mental Status/Confusion Check if condition above is: Chronic JOHANNY FRANCO MD 12/15/16 1615: Hospital Course 12/15/2016-I reviewed this chart, the patient history, and the ENVIRONMENTAL SERVICES TECH's/PA's documented findings as above. We discussed and formulated the assessment and plan as above with the additions below.-Dr. Franco The patient continues to have fairly significant memory problems. He denies any pain, tingling or weakness. He is up walking with a walker with the nurses without difficulties. He denies any shortness of breath. He has not had any neurologic changes. It is uncertain if he was actually having numbness and tingling yesterday or not since he is not a reliable historian due to his dementia. He does not appear acutely ill. On exam he is alert and pleasant and in no acute distress. On neurologic exam he has no focal deficits. Chest is clear to auscultation. Cardiovascular reveals a regular rate and rhythm. Abdomen is soft and nontender. Extremities reveal no edema. Skin is warm and dry and without rashes. It is uncertain if he was taking his medications as directed at assisted living. Regarding possible TIA, I'll have him stay on Xarelto and aspirin. Due to his elevated LDL and right vertebral artery occlusion will increase Lipitor to 80 mg a day as recommended by Dr. Mckeon. The patient will follow-up with Dr. Mckeon and Dr. Harden. The patient appears to be [facility]. He does need 24-hour supervision due to his dementia. I will notify Dr. Harden of discharge plans. Problems: Home Meds Active Scripts Ubidecarenone (Coenzyme Q-10) 200 Mg Capsule, 200 MG PO DAILY, #3 CAP 0 Refills Prov:ROSEMARY RESENDIZ ENVIRONMENTAL SERVICES TECH 12/15/16 Atorvastatin Calcium (Atorvastatin Calcium) 80 Mg Tablet, 1 TAB PO HS, #30 TAB Prov:ROSEMARY RESENDIZ ENVIRONMENTAL SERVICES TECH 12/15/16 Aspirin (Aspir 81) 81 Mg Tablet.dr, 1 TAB PO DAILY, #30 TAB Prov:ROSEMARY RESENDIZ ENVIRONMENTAL SERVICES TECH 12/15/16 Rivaroxaban (Xarelto) 20 Mg Tablet, 1 TAB PO DAILY, #30 Prov:ROSEMARY RESENDIZ APRN 12/15/16 Metoprolol Tartrate (Metoprolol Tartrate) 50 Mg Tablet, 50 MG PO BIDWM, #60 TAB Take 1 tablet, by mouth, 2 times a day with meals. Prov:ROSEMARY RESENDIZ ENVIRONMENTAL SERVICES TECH 12/15/16 Discontinued Reported Medications Atorvastatin Calcium (Atorvastatin Calcium) 40 Mg Tablet, 1 TAB PO DAILY 03/15/16 Copies To 1: NICOLE HARDEN MD Copies To 2: ALEXANDER MCKEON MD, KAREN D APRN Dec 15, 2016 14:32 JOHANNY FRANCO MD Dec 15, 2016 16:15
--- NOTE | 2016-12-15 14:54 | NUR ---
CM D/C TIME OUT COMPLETE. ALL ORDERS SENT TO POST ACUTE CARE SETTING. CAROLINE FROM [facility] IS AWARE TO CONTACT IF NEEDS ARISE.
--- NOTE | 2016-12-15 15:40 | NUR ---
Discharge Pt dismissed per w/c with transporter for [facility]. Pt.s personal belongings sent with pt.and transfer papers and orders sent..
[2016-12-15] MEDS ORDERED: RIVAROXABAN 20 MG TABLET PO SCH (17:30)
[2016-12-15] MEDS ORDERED: ATORVASTATIN 40 MG TABLET PO SCH (22:00)
--- NOTE | 2016-12-20 09:53 | STEVAL ---
Eval Subjective and History Date/Time of Eval DATE: 11/2916 TIME: 16:36 Medical Diagnosis R/O CVA, R/O DYSPHAGIA Treatment Order: Assessment, Dev./Imp. tx plan Orientations: Alert (Confused), Cooperative Primary Complaint: Change of mental status Pain: Yes (aching from arthritis) Date of Onset of Primary Com: 12/14/16 Prior History of This Problem: Yes (previous CVAs) Patient's Goals: Pt was confused to time and place. He wantd someone to bring his upper dentures and pajamas to him. Significant Past Medical Hx: Pt was admitted to [facility] to rule out stroke. PMH: multiple strokes, residual right weakness. vacular dementia, HTN, hypercholesterolemia, TULALIP, type 2 DM, A-fib, CHF, rheumatic fever 1944, DNR status. Medical History Form Reviewed: Yes Residence Type: Private home/apartment Lives With: Alone Prior Functional Status: Pt reported that he was on a regular diet. Current Functional Status: Increased risk of aspiration. Education Subject: Swallowing Strategies Person(s) Educated: Patient Instruction Understanding Demo: Education unsuccessful (pt confused) Education Comment VOICE AND DATA TECHNICIAN educated patient on reasoning for evaluation. Patient was agreeable to evaluation. Subjective and History Comment: Pt was alert but disoriented. He reported that he did not have his upper dentures with him. Pt needed loud conversational voice and face to face to understand directions. Dysphagia Evaluation Evaluation Location: Bed (sitting on side of bed) Evaluation Angle: 90 Tongue Elevation: No Impairment (WFL) Tongue Lateralization: No Impairment (WFL) Tongue Protrusion: No Impairment (WFL) Tongue Retraction: No Impairment (WFL) Tongue Extension Midline: No Impairment (WFL) Labial Approximation: No Impairment (WFL) Intraoral Air Pressure: Unable to Elicit Volitional Cough: Unable to Elicit Larynx Elevation During Swallo: No Impairment (WFL) Saliva Control: No Impairment (WFL) Dentition: Dentures Oral Peripheral Exam Comment: Pt was unwilling to imitate oral motor movements. Spontaneous movements were within functional limits. Upper denture was at home. Lip Seal: Adequate-liquid, Adequate-pudding, Adequate-solid Lingual Manipulation: Adequate-liquid, Adequate-pudding, Adequate-solid Chewing: Adequate-solid (moderately reduced, no upper denture) Oral cavity clear post swallow: Adequate-liquid, Adequate-pudding, Adequate- solid Swallow initiated w/o delay: Adequate-liquid, Adequate-pudding, Adequate-solid Multiple swallows not needed: Adequate-liquid, Adequate-pudding, Adequate-solid Voice clear&dry post swallow: Adequate-liquid, Adequate-pudding, Adequate-solid No cough/throat clear: Adequate-liquid, Adequate-pudding, Adequate-solid Assessment/Plan of Care Speech Therapy Impressions: Pt demonstrated functional oral range of motion. He demonstrated impulsive pattern for eating and drinking but no s/s of aspiration. Upper denture left at home. Pt ate sugar free pudding and juan carlos cracker with no difficulty. Thin liquids tolerated well with cue to slow rate. Fci Goal: Pt will maintain nutrition and hydration of the least restrictive diet while demonstrating no s/s of aspiration on a meal. Short Term Goal: Pt will consume a soft diet/chopped meat and thin liquids without outward signs of aspiration at bedside in 2/2 trials. Pt will demonstrate [3/3 components necessary for a safe swallow as listed from the following: small bites, slow rate, alternating solids/liquids. Pt will implement compensatory feeding strategies in 2/2 meals with mild cues to aid recall. ST Treatment Plan: Swallow Retraining, Swallow Precautions, Modified Diet ST Treatment Plan Frequency: two times per week Treatment Plan Duration: one week Plan of Care Comment Swallow retraining Soft diet/chopped meat and regular liquids Swallow precautions Date of Visit 12/20/16 Time Visit Began: 16:15 Time Visit Ended: 16:35 ST Assess/Plan of Care: ST Treatment Charge: Swallow Eval Minutes of Individual Therapy: 20 GCODE Swallowing: G8996 - current Severity Modifier: CI - 1-19% Swallowing: G8997 - goal Severity Modifier: CI - 1-19% INDIO GRUBER MS CCC-VOICE AND DATA TECHNICIAN Dec 20, 2016 09:31
== END 2016-12-15 15:40 ==
LOC: ED 09:24 → EEVIPCON 11:06 → EDHOLD 11:06 → MED 11:06
PROVIDERS: ADMIT Internal Medicine; ATTEND Internal Medicine
DX: I65.01 Occlusion and stenosis of right vertebral artery (principal); R20.2 Paresthesia of skin; I65.23 Occlusion and stenosis of bilateral carotid arteries; E78.2 Mixed hyperlipidemia; I10 Essential (primary) hypertension; I70.203 Unspecified atherosclerosis of native arteries of extremities, bilateral legs; I48.2 Chronic atrial fibrillation; I50.9 Heart failure, unspecified; E11.9 Type 2 diabetes mellitus without complications; F03.90 Unspecified dementia, unspecified severity, without behavioral disturbance, psychotic disturbance, mood disturbance, and anxiety; R53.1 Weakness; Z86.73 Personal history of transient ischemic attack (TIA), and cerebral infarction without residual deficits; Z87.891 Personal history of nicotine dependence; Z86.010 Personal history of colon polyps; Z79.02 Long term (current) use of antithrombotics/antiplatelets; Z79.899 Other long term (current) drug therapy; Z66 Do not resuscitate
CPT/HCPCS: 70450; 71010; 80053; 80061; 81001; 82948; 84484; 85025; 85610; 85730; 92526; 92610; 93005; 93306; 93880; 97116; 97161; 97165; 99284; A9270; G0378; G8978; G8979; G8987; G8989; 99218